=== PATIENT | male | born 2000 | race Caucasian/White ===

== ENCOUNTER 2020-08-05 19:04 | Emergency (ER) | payer OTHER, SELFPAY ==
[2020-08-05 19:25] VITALS: BP 123/60; PULSE 89; RESP 18; TEMP 36.7; O2SAT 98
--- NOTE | 2020-08-05 19:33 | ED.URI ---
HPI - URI/Sore Throat General Chief Complaint: Ear Stated Complaint: possible ear or sore throat Time Seen by Provider: 08/05/20 19:33 Source: patient, family and RN notes reviewed History of Present Illness HPI Narrative: Patient is a 19-year-old male who presents the urgent care with his father with complaints of a possible ear infection or strep throat. 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 States that he typically has increased behavioral issues and acts out when there may be something wrong. Father states that last night he went after his mother and did not get a lot of sleep. States that for the last week he has had a lot of nasal drainage and spitting up a lot. States that they have been giving him Benadryl as much as he will take it. Denies of any fevers. Denies of any vomiting. No other acute complaints. No acute distress noted. Father aware of the plan of care. Some parts of this dictation were generated by voice recognition software and may contain typographical and/or grammatical inaccuracies. Related Data Home Medications Medication Instructions Recorded Confirmed semaglutide [Ozempic] mg SUBCUT 08/05/20 Allergies Allergy/AdvReac Type Severity Reaction Status Date / Time No Known Allergies Allergy Verified 08/05/20 19:33 Review of Systems Review of Systems: Narrative: ROS completed with the father CONSTITUTIONAL: Denies fever, chills, or sweats. EYES: Denies visual changes, redness, or discharge. ENT: Denies rhinorrhea, congestion, sore throat, or otalgia. Reports of increased nasal drainage CARDIOVASCULAR: Denies chest pain, palpitations, or edema. RESPIRATORY: Denies cough or dyspnea. GASTROINTESTINAL: Denies abdominal pain, nausea, vomiting, or diarrhea. GENITOURINARY: Denies dysuria or hematuria. SKIN: Denies rash or itching. MUSCULOSKELETAL: Denies back pain, joint pain, or myalgia. NEUROLOGIC: Denies headache, numbness, or weakness. All other systems reviewed are negative, except as documented in HPI. PMFSH Comments At the time of my signature, I reviewed and agree with the nursing past medical, surgical, social, and family history. There is no relevant family history pertinent to the patient complaint. Exam Narrative: Exam Narrative: GENERAL: This is a well-nourished, well-developed patient, in no apparent distress. HEAD: normocephalic, atraumatic. EYES: PERRL. Sclera clear/white. Vision is grossly intact. EARS: External ears normal, auditory canals clear and without drainage, TMs normal without perforation. Hearing grossly intact. NOSE: External nose normal with no obvious nasal discharge, nares without redness, clear rhinorrhea. THROAT: Mucous membranes moist, mild erythema noted the posterior oropharynx with mild bilateral tonsillar edema/erythema with moderate postnasal drainage. NECK: Neck supple CARDIOVASCULAR: Regular rate and rhythm without murmurs, gallops, or rubs. RESPIRATORY: Clear to auscultation. Breath sounds equal bilaterally. No wheezes, rales, or rhonchi. SKIN: warm, intact with no suspicious lesions or rash, good texture and turgor. NEURO: awake, alert, and oriented to person, place and time. There were no obvious focal neurologic abnormalities. EXTREMITIES: No clubbing, cyanosis, or edema. Course Vital Signs Vital signs: Vital Signs Temperature 98.0 F 08/05/20 19:25 Pulse Rate 89 08/05/20 19:25 Respiratory Rate 18 08/05/20 19:25 Blood Pressure 123/60 08/05/20 19:25 Pulse Oximetry 98 08/05/20 19:25 Temperature 98.0 F 08/05/20 19:25 Pulse Rate 89 08/05/20 19:25 Respiratory Rate 18 08/05/20 19:25 Blood Pressure 123/60 08/05/20 19:25 Pulse Oximetry 98 08/05/20 19:25 Reviewed MDM - URI/Sore Throat MDM Narrative Medical decision making narrative: Reviewed lab results with the father. He is aware that strep swab was was negative. Educated father on culture and we will call within 72 hours if afshan
== END 2020-08-05 19:50 | disposition home or self-care (01) ==
PROVIDERS: Emergency Provider Nurse Practitioner Family
DX: Z71.1 Person with feared health complaint in whom no diagnosis is made (principal); E11.9 Type 2 diabetes mellitus without complications
CPT/HCPCS: 87081; 87880; 99213; G0463

== ENCOUNTER 2022-08-21 17:34 | Emergency (ER) | payer OTHER, SELFPAY ==
[2022-08-21 17:46] VITALS: BP 139/89; PULSE 101; RESP 20; TEMP 36.6; O2SAT 98
--- NOTE | 2022-08-21 17:59 | ED.URI ---
HPI - URI/Sore Throat General Chief Complaint: Upper Respiratory Infection Stated Complaint: Right Ear Pain History of Present Illness HPI Narrative: Patient brought in by parents for evaluation of right ear pain. Dad states they flew on an airplane for the 1st time yesterday and wonders if that contributed to his ear pain. Dad states he also has trouble with allergies and moderate amount of nasal congestion. No fever no cough. Patient is hard to evaluate due to her Down syndrome. Related Data Home Medications Medication Instructions Recorded Confirmed semaglutide 0.25 mg or 0.5 mg (2 mg subcut 08/05/20 mg/1.5 mL) subcutaneous pen injector (Ozempic) benztropine 0.5 mg tablet mg 08/21/22 divalproex 125 mg tablet,delayed mg PO 08/21/22 release hydroxyzine HCl 25 mg tablet mg 08/21/22 lorazepam 1 mg tablet mg 08/21/22 melatonin 5 mg tablet mg 08/21/22 risperidone 0.5 mg tablet mg 08/21/22 Allergies Allergy/AdvReac Type Severity Reaction Status Date / Time No Known Allergies Allergy Verified 08/05/20 19:33 Review of Systems Review of Systems: CONSTITUTIONAL: Denies fever, chills, or sweats. EYES: Denies visual changes, redness, or discharge. ENT: Denies rhinorrhea, congestion, sore throat, or otalgia. CARDIOVASCULAR: Denies chest pain, palpitations, or edema. RESPIRATORY: Denies cough or dyspnea. GASTROINTESTINAL: Denies abdominal pain, nausea, vomiting, or diarrhea. GENITOURINARY: Denies dysuria or hematuria. SKIN: Denies rash or itching. MUSCULOSKELETAL: Denies back pain, joint pain, or myalgia. NEUROLOGIC: Denies headache, numbness, or weakness. PSYCHIATRIC: Denies anxiety or depression. PMFSH Comments At time of signature, agree with nursing past medical, surgical, social and family history. There is no relevant family history pertinent to the presenting complaint Exam Narrative: GENERAL: Well-appearing, well-nourished, and in no acute distress. HEAD: Normocephalic, atraumatic. EYES: PERRLA and EOMI. ENT: Nares clear, no rhinorrhea or epistaxis. Mucous membranes moist. Right ear canal moderate amount of erythema with bulging TM left canal normal mild dullness to left TM NECK: Supple. CHEST: Clear to auscultation. No respiratory distress. HEART: Regular rate and rhythm. No murmur heard. Normal peripheral pulses. ABDOMEN: Soft, nontender, nondistended, normal active bowel sounds. EXTREMITIES: Normal range of motion. No edema. SKIN: Warm, dry, no rash. NEURO: No focal deficits. Alert and oriented x3. Opal Coma Scale Eye Opening: Spontaneous 4 [place]ondo Coma Scale Motor: Obeys Commands 6 Opal Coma Scale Verbal: Oriented 5 [place] Coma Scale Total 15 Course Course Level of Care: Express Care Visit Vital Signs Vital signs: Vital Signs Temperature 36.6 C 08/21/22 17:46 Pulse Rate 101 H 08/21/22 17:46 Respiratory Rate 20 08/21/22 17:46 Blood Pressure 139/89 08/21/22 17:46 Pulse Oximetry 98 08/21/22 17:46 Oxygen Delivery Room Air 08/21/22 17:46 Temperature 36.6 C 08/21/22 17:46 Pulse Rate 101 H 08/21/22 17:46 Respiratory Rate 20 08/21/22 17:46 Blood Pressure 139/89 08/21/22 17:46 Pulse Oximetry 98 08/21/22 17:46 Oxygen Delivery Room Air 08/21/22 17:46 Discharge Plan Discharge Clinical Impression: Otitis media Patient Disposition: Home, Self-Care Condition: Stable Instructions: Antibiotic Form, Ear Infection (AC) Additional Instructions: congestion - flonase am and pm for chronic sinus congestion or prolonged symptoms of sinusitis (takes several days to work). one to three times a day of irrigation of sinus with saline spray, ocean nasal spray or ayaz pot. fluids. if you don't have hypertension-afrin nasal spray with a 3 day limit for immediate relief of sinus congestion. for runny nose: do over the counter antihistamine (claritin, benadryl, zyrtec) for sn
== END 2022-08-21 18:04 | disposition home or self-care (01) ==
PROVIDERS: Emergency Provider Nurse Practitioner Family
DX: H66.91 Otitis media, unspecified, right ear (principal); E11.9 Type 2 diabetes mellitus without complications; Q90.9 Down syndrome, unspecified
CPT/HCPCS: 99213; G0463

== ENCOUNTER 2023-04-11 13:38 | Emergency (ER) | payer OTHER, BC, SELFPAY ==
[2023-04-11 13:46] VITALS: BP 130/74; PULSE 118; RESP 18; TEMP 36.7; O2SAT 97
--- NOTE | 2023-04-11 14:03 | ED.GENADULT ---
HPI - General Adult General Chief complaint: Upper Respiratory Infection Stated complaint: Respiratory issues Source: patient, RN notes reviewed and old records reviewed Mode of arrival: ambulatory Limitations: no limitations History of Present Illness HPI narrative: 22-year-old male patient presents to [facility], accompanied by father, with complaint of cough, congestion, runny nose that started 5 days ago. Had getting [id number] medications with no relief. Patient is nonverbal making it difficult to get a strong history from Related Data Home Medications Medication Instructions Recorded Confirmed semaglutide 0.25 mg or 0.5 mg (2 mg subcut 08/05/20 mg/1.5 mL) subcutaneous pen injector (Ozempic) benztropine 0.5 mg tablet mg 08/21/22 divalproex 125 mg tablet,delayed mg PO 08/21/22 release hydroxyzine HCl 25 mg tablet mg 08/21/22 lorazepam 1 mg tablet mg 08/21/22 melatonin 5 mg tablet mg 08/21/22 risperidone 0.5 mg tablet mg 08/21/22 Allergies Allergy/AdvReac Type Severity Reaction Status Date / Time No Known Allergies Allergy Verified 04/11/23 14:02 Review of Systems Constitutional: Constitutional: Reports no additional constitutional complaints, Reports body ache(s), Denies chills, Denies fatigue, Denies fever(s) and Denies headache(s) Eyes: Eyes: Reports no additional eye complaints and Denies blurry vision ENT: Reports system reviewed and no additional complaints, except as documented, Denies vertigo, Denies dizziness, Denies ear discharge, Denies otalgia, Denies facial pain, Denies headache(s), Reports nasal congestion, Reports nasal discharge, Denies sinus pain, Denies sinus pressure and Denies sore throat Cardiovascular: Cardiovascular: Reports no additional cardiovascular complaints, Denies chest pain, Denies chest pain at rest, Denies rapid heart rate and Denies dyspnea Respiratory: Respiratory: Reports no additional respiratory complaints, Reports chest congestion, Reports cough, Denies pain on inspiration, Denies pain with cough and Denies dyspnea Gastrointestinal: Gastrointestinal: Denies abdominal pain, Denies diarrhea, Denies nausea and Denies vomiting Integumentary/Breasts: Skin/Breast: Denies rash Neurologic: Reports system reviewed and no additional complaints, except as documented, Denies vertigo, Denies dizziness and Denies headache(s) Endocrine: Endocrine: Denies fatigue PMFSH Comments At the time of my signature, I reviewed and agree with the nursing past medical, surgical, social, and family history. There is no relevant family history pertinent to the patient complaint. Exam Const: General: healthy appearing, no acute distress and well nourished Nutritional Appearance: well nourished Orientation/consciousness: oriented to person Limitations: behavioral limitations and language barrier HENMT: Head: normal to inspection and normocephalic Ears: external ears normal, mastoids normal, Abnormal EAC present and TM abnormal erythematous on the left Face/Nose/Sinus: normal facial exam Face and sinus: normal facial exam Mouth: Yes other ( Patient uncooperative with oral exam.) Eyes: General: appearance normal, both eyes and all related structures Sclera: sclerae normal Pupils: Equal, round and reactive pupils present Resp: Effort & Inspection: normal respiratory effort, able to speak in complete sentences, no audible wheezes, no cough, no respiratory distress and no retractions Auscultation: clear to auscultation bilaterally, no crackles, no rales, no rhonchi and no wheezes Cardio: Rate: regular rate Rhythm: regular rhythm Skin: General skin exam: normal color and no rashes or lesions noted Neuro: General: oriented to person Cranial nerves: Yes Equal, round and reactive pupils present Psych: Appearance: grossly normal Mental Status: mental status grossly normal Speech and movement: Normal speech and movement present Affect: normal affect Course Course Em
== END 2023-04-11 14:25 | disposition home or self-care (01) ==
PROVIDERS: Emergency Provider Registered Nurse; PCP Family Medicine
DX: J01.10 Acute frontal sinusitis, unspecified (principal); E11.9 Type 2 diabetes mellitus without complications; Q90.9 Down syndrome, unspecified
CPT/HCPCS: 99213; G0463

== ENCOUNTER 2023-09-03 17:26 | Emergency (ER) | payer OTHER, BC, SELFPAY ==
[2023-09-03 17:43] VITALS: PULSE 112; RESP 20; TEMP 37.2; O2SAT 98
--- NOTE | 2023-09-03 17:43 | ED.URI ---
HPI - URI/Sore Throat General Chief Complaint: Upper Respiratory Infection Stated Complaint: Chest Congestion/Sinus Congestion Time Seen by Provider: 09/03/23 17:43 Source: patient, RN notes reviewed and old records reviewed Mode of arrival: ambulatory Limitations: no limitations History of Present Illness HPI Narrative: 22-year-old male presents to the [facility] with his dad with complaints of chest congestion, sinus congestion, runny nose that started yesterday. Denies fevers. Patient is not very cooperative with exam, has not been able to open mouth. Dad denies any concerns for strep. one dose of dayquil today. Onset (ago): day(s) (1) Related Data Home Medications Medication Instructions Recorded Confirmed benztropine 0.5 mg tablet 0.5 mg PO DAILY 08/21/22 09/03/23 divalproex 125 mg tablet,delayed See Rx Instructions .Route .COMPLEX 08/21/22 09/03/23 release hydroxyzine HCl 25 mg tablet See Rx Instructions .Route .COMPLEX 08/21/22 09/03/23 lorazepam 1 mg tablet See Rx Instructions .Route .COMPLEX 08/21/22 09/03/23 melatonin 5 mg tablet 5 mg PO HS 08/21/22 09/03/23 risperidone 0.5 mg tablet See Rx Instructions .Route .COMPLEX 08/21/22 09/03/23 insulin glargine 100 unit/mL (3 See Rx Instructions .Route .COMPLEX 04/11/23 09/03/23 mL) subcutaneous pen (Lantus Solostar U-100 Insulin) semaglutide 0.25 mg or 0.5 mg (2 See Rx Instructions .Route .COMPLEX 04/11/23 04/11/23 mg/3 mL) subcutaneous pen injector (Ozempic) Allergies Allergy/AdvReac Type Severity Reaction Status Date / Time No Known Allergies Allergy Verified 04/11/23 14:02 Review of Systems Review of Systems: All systems reviewed & are unremarkable except as noted in HPI and below Constitutional: Constitutional: Reports no additional constitutional complaints Eyes: Eyes: Reports no additional eye complaints ENT: Reports as per HPI Cardiovascular: Cardiovascular: Reports no additional cardiovascular complaints, Denies chest pain and Denies dyspnea Respiratory: Respiratory: Reports no additional respiratory complaints, Denies chest congestion, Denies cough and Denies dyspnea Gastrointestinal: Gastrointestinal: Reports no additional gastrointestinal complaints, Denies abdominal pain, Denies nausea and Denies vomiting Musculoskeletal: Musculoskeletal: Reports no additional musculoskeletal complaints Integumentary/Breasts: Skin/Breast: Reports system reviewed and no additional complaints, except as docu Neurologic: Reports system reviewed and no additional complaints, except as documented Psychiatric: Psychiatric: Reports no additional psychiatric complaints Allergic/Immunologic: Allergic/Immunologic: Reports no additional allergic/immunologic complaints PMFSH Comments At the time of my signature, I reviewed and agree with the nursing past medical, surgical, social, and family history. There is no relevant family history pertinent to the patient complaint. Exam Const: General: cooperative, healthy appearing, comfortable, no acute distress, well developed, alert and well nourished Nutritional Appearance: well nourished Orientation/consciousness: patient oriented x3 Limitations: no limitations HENMT: Head: normal to inspection Ears: hearing grossly normal bilaterally, external ears normal, TM's normal bilaterally, EAC's normal, mastoids normal and no periauricular adenopathy Face/Nose/Sinus: Normal external nose present, Normal nares present, Nasal discharge present clear bilateral, normal facial exam, sinuses nontender and face symmetric Face and sinus: normal facial exam and face symmetric Throat: other (Unable to visualize, patient is not cooperative) Eyes: General: appearance normal, both eyes and all related structures Alignment and Position: alignment normal Periorbital: periorbital findings normal Pupils: Equal, round and reactive pupils present EOM: EOMs intact bilaterally Neck: Neck: normal visual inspection, full ROM, no
[2023-09-03 17:52] VITALS: BP 133/72
== END 2023-09-03 18:12 | disposition home or self-care (01) ==
PROVIDERS: Emergency Provider Nurse Practitioner; PCP Family Medicine
DX: J06.9 Acute upper respiratory infection, unspecified (principal); R09.82 Postnasal drip; E11.9 Type 2 diabetes mellitus without complications; Q90.9 Down syndrome, unspecified
CPT/HCPCS: 99211; G0463